=== PATIENT | female | born 1980 | race Caucasian/White ===

== ENCOUNTER → 2017-03-19 | Outpatient (CLI) | payer BC ==
--- NOTE | 2017-03-22 15:43 | MR ---
EXAM DATE: 03/19/17 PATIENT'S AGE: 37 Patient: FAITH QUINN Facility: [place], [place] Site . Site : 1980 Study: MRI Shoulder Right [id number] 5:51:47 PM Ordering Physician: Remington New Final Report: HISTORY Shoulder pain. FINDINGS Rotator cuff: Mild increased signal intensity is seen within the musculotendinous junction and distal tendon of the supraspinatus consistent with mild tendinosis. There may be a mild element of low grade thinning or fraying in this region but no focal partial-thickness or full-thickness tearing is noted. The other cuff components are intact.There is a moderate subacromial bursa effusion consistent with moderate bursitis. Acromioclavicular joint region: The appearance and alignment of the joint is within normal limits. There is a concave, type 1 acromial undersurface without lateral downsloping. Biceps labral complex: No labral tearing or separation is noted. The long biceps tendon is intact and in normal position. Glenohumeral joint: The articular cartilage surfaces are smooth and normally maintained. No joint effusion or loose body is noted. Bones and soft tissues: No findings for fracture or tumor. No muscular atrophy is noted. Impression: Mild supraspinatus tendinosis and moderate subacromial bursitis. No high-grade partial-thickness or full-thickness rotator cuff tear is noted. Dictated by Ceferino Ramirez MD @ Mar 22 2017 9:48AM (Electronic Signature) Report Signed by Proxy. OMAYRA
== END ==
LOC: MW.MRI 16:54
PROVIDERS: ATTEND Physician Assistant
DX: M25.511 Pain in right shoulder (principal)
CPT/HCPCS: 73221-26-RT; 73221-RT